=== PATIENT | male | born 1980 | race Caucasian/White ===

== ENCOUNTER 2018-05-14 17:14 | Emergency (ER) | payer MEDICAID, SELFPAY ==
[2018-05-14 17:21] VITALS: BP 122/75; PULSE 91; RESP 16; TEMP 37; O2SAT 96
--- NOTE | 2018-05-14 17:45 | ED.GENADUL_ITS ---
Discharge Plan Disposition Patient Disposition: HOME Condition: Stable Discharge Details Chief Complaint: RespSymp Clinical Impression: Infection, respiratory tract Primary Care Provider: None,None ED Provider: Daryl Islas Home Meds and New Rx's Prescriptions: New benzonatate 200 mg capsule 200 mg PO TID PRN (Reason: cough) Qty: 30 RF: 0 doxycycline hyclate 100 mg capsule 100 mg PO BID Qty: 14 RF: 0 Discharge Instructions Instructions: Cold Symptoms (ED) Additional Instructions: If you begin running high fevers, have significant shortness of breath difficulty breathing, or any further concerns feel free to return to the emergency department for reassessment. Otherwise take antibiotic as prescribed, stay well-hydrated, and get plenty of rest during illness. Follow-up with your primary care provider if not improving over the next week. Stand Alone Forms: Work Release Referrals: Primary Care Provider [Outside] Medical Decision Making Patient complains of nasal congestion, cough, fever and chills. Patient states that symptoms started 3 weeks ago and seem to be improving but over the past week has had night sweats, fever chills, worsening productive cough along with nasal congestion. Physical exam shows no sinus tenderness, no lymphadenopathy, mild posterior pharynx erythema. Lung sounds do show mild rhonchi in the right lower base that clear with coughing that I feel may be secondary mostly to his smoking. Patient is not tachycardic, not hypoxic, not hypotensive. given duration of symptoms and double illness sign patient placed on doxycycline. Patient states he was being able to fill prescription due to insurance so patient was given good Rx discount card. Return precautions were discussed. After discussion of diagnosis and plan of care patient has no further needs, questions, or concerns and states clear understanding to return to the emergency department for any worsening symptoms. HPI General Mode of arrival: ambulatory . Date/Time Provider Initiated Documentation: 05/14/18 17:25 . Limitations to Documentation: no limitations . Information obtained by: RN notes reviewed . History of Present Illness 37 year old M presents to the emergency department with the chief complaint of Cough fever nasal congestion, described as moderate, Quality is described as other (denies current pain), Patient started experiencing this week(s) (3) and it has been constant. Patient notes no other symptoms.. Patient did receive the following treatments prior to arrival, none Related Data Home Medications Medication Instructions Recorded Confirmed benzonatate 200 mg PO TID PRN #30 cap 05/14/18 doxycycline hyclate 100 mg PO BID #14 cap 05/14/18 Previous Rx's Medication Instructions Recorded benzonatate 200 mg PO TID PRN #30 cap 05/14/18 doxycycline hyclate 100 mg PO BID #14 cap 05/14/18 Allergies Allergy/AdvReac Type Severity Reaction Status Date / Time ibuprofen Allergy Severe Anaphylaxsi Unverified 05/14/18 17:23 s erythromycin base Allergy Unverified 05/14/18 17:23 General Stated Complaint: RespSymp [place]: 4 Review of Systems Constitutional Denies body ache(s), Reports chills, Reports fever(s), Reports headache(s) and Reports malaise Eyes Denies eye discharge ENT Reports as per HPI, Denies ear discharge, Denies otalgia, Reports headache(s), Reports nasal congestion, Reports nasal discharge, Denies neck pain, Reports sinus pain, Reports sinus pressure, Reports sore throat and Denies throat swelling Cardiovascular Denies chest pain and Denies dyspnea Respiratory Reports cough and Denies dyspnea Musculoskeletal Denies joint swelling and Denies neck pain Integumentary/Breasts Denies rash Neurologic Reports headache(s) Allergic/Immunologic Denies throat swelling [facility] Social History Smoking and Tabacco status: Current every day Exam Const General: cooperative, comfortable and no acute distress Orientation: alert and awake HENMT Head: normal to inspection, normocephalic and atraumatic Ears: hearing grossly normal bilaterally and TM's normal bilaterally General nose exam: external nose normal Face and sinus: normal facial exam, sinuses nontender and no erythema Mouth: oral mucosae normal, no drooling, no muffled voice and no trismus Throat: tonsils normal, uvula midline and posterior oropharynx abnormal erythema Neck Neck: normal visual inspection, full ROM, no lymphadenopathy, no meningeal signs, trachea midline and supple Resp Effort & Inspection: normal respiratory effort and able to speak in complete sentences Auscultation: rhonchi right lower and no wheezes Cardio Rate: regular rate Rhythm: regular rhythm Heart Sounds: S1 normal, S2 normal, normal S1 and S2, no click, no gallops, no murmurs and no rubs Skin General skin exam: no rashes or lesions noted and dry skin (warm) Neuro General: alert, awake, oriented x3, gait normal and moves all extremities Cognition: normal cognition Speech: speech normal Course Vital Signs Temperature 37 C 05/14/18 17:21 Pulse 91 H 05/14/18 17:21 Respiratory Rate 16 05/14/18 17:21 Blood Pressure 122/75 05/14/18 17:21 Pulse Oximetry 96 05/14/18 17:21 Temperature 37 C 05/14/18 17:21 Temperature Source Skin 05/14/18 17:21 Pulse 91 H 05/14/18 17:21 Respiratory Rate 16 05/14/18 17:21 Respiratory Effort Non-Labored 05/14/18 17:21 Blood Pressure 122/75 05/14/18 17:21 Blood Pressure Position Sitting 05/14/18 17:21 Pulse Oximetry 96 05/14/18 17:21 Oxygen Delivery Method Room Air 05/14/18 17:21 Oxygen Flow Rate 0 05/14/18 17:21 Pain Level 0 05/14/18 17:21
[2018-05-14] MEDS: Doxycycline Hyclate 100 MG CAP PO (17:55)
[2018-05-14 18:08] VITALS: BP 120/75; PULSE 90; RESP 16; TEMP 37; O2SAT 96
== END 2018-05-14 18:10 | disposition home or self-care (01) ==
PROVIDERS: Emergency Provider Nurse Practitioner Family
DX: J06.9 Acute upper respiratory infection, unspecified (principal); F17.210 Nicotine dependence, cigarettes, uncomplicated
CPT/HCPCS: 99283

== ENCOUNTER 2023-01-10 18:32 | Emergency (ER) | payer MEDICAID, SELFPAY ==
[2023-01-10 18:35] VITALS: BP 124/76; PULSE 114; RESP 18; TEMP 36.7; O2SAT 96
[2023-01-10 19:43] LABS: Abs Immature Grans 0.03 10^3/uL (0.0-0.06); Absolute Lymphocyte Count 2.99 10^3/uL (1.2-3.4); Absolute Neutrophil Count 9.56 10^3/uL (1.2-6.7); Basophils % 0.7; Eosinophils % 2.9; HCT 51.6 % (40.0-50.0); HGB 17.8 g/dL (13.5-17.5); Immature Grans % 0.2; Lymphocytes % 21.8; MCH 32.2 pg (27.0-33.0); MCHC 34.5 % (32.0-36.0); MCV 94 fL (80-95); MPV 9.9 fL (8.0-11.0); Monocytes % 4.7; Neutrophils % 69.7; Platelet Count 243 10^3/uL (130-400); RBC 5.52 10^6/uL (4.36-5.78); RDW 13.2 % (11.8-14.1); RDW-SD 45.8 fL; WBC 13.72 10^3/uL (4.4-10.8)
[2023-01-10 19:45] LABS: Absolute Monocyte Count 0.64 10^3/uL (0.1-0.8)
--- NOTE | 2023-01-10 19:46 | ED.GENADUL_ITS ---
Discharge Plan Disposition Patient Disposition: Home Condition: Stable Discharge Details Clinical Impression: Major depression Primary Care Provider: Unknown,Unknown ED Provider: Makeda Wilson Home Meds and New Rx's Prescriptions: No Action No Known Home Meds Discharge Instructions Instructions: Depression (DC) Referrals: Unknown,Unknown [Primary Care Provider] - (Follow-up with mental health as discussed and arranged) Discharge Data Discharge Date/Time-TO BE ENTERED AT DEPARTURE: 01/10/23 22:14 Medical Decision Making Routine psychiatric medical clearance. No acute medical condition identified to weigh symptoms. Stable for mental health consultation mental health evaluation with no suicidal or homicidal ideation. resources provided. safe for discharge to home. has been observed with positive attentive interactions with his young daughter as they awaited interview. Medical Records Medical records reviewed: Yes I reviewed the patient's medical records. HPI General Mode of arrival: ambulatory . Date/Time Provider Initiated Documentation: 01/10/23 18:45 . Limitations to Documentation: no limitations . Information obtained by: patient . HPI Narrative: 42-year-old male patient under a lot of stress with no stable living resident's, significant other and rehabilitation left as a sole caregiver for his GI daughter. [facility] has been involved and has advised symptoms of coming here for evaluation as he is feeling overwhelmed. He denies any suicidal or homicidal ideation. There is no concern that his daughter is danger Related Data Home Medications Medication Instructions Recorded Confirmed Unknown [No Known Home Meds] 04/27/21 04/27/21 Allergies Allergy/AdvReac Type Severity Reaction Status Date / Time ibuprofen Allergy Severe Anaphylaxsi Verified 04/27/21 10:09 s erythromycin base Allergy Verified 04/27/21 10:09 General Stated Complaint: PsychEval [place]: 2 Review of Systems All systems reviewed & are unremarkable except as noted in HPI and below PFSH All Active Problems (Updated 01/10/23 @ 20:22 by Makeda Wilson NP) Major depression (Chronic) Social History Smoking/Tobacco Use Status: Current every day Tobacco Type: cigarettes Smoking risk assessment performed?: Yes Drug use: Never Do you feel safe in your relationship?: Yes Exam Const General: cooperative, healthy appearing, comfortable and no acute distress Nutritional Appearance: average body habitus Orientation: alert, awake and oriented x3 HENMT Head: normal to inspection, normocephalic and atraumatic Mouth: oral mucosae normal Resp Effort & Inspection: normal respiratory effort Cardio Rate: regular rate Rhythm: regular rhythm GI Inspection: normal to inspection Palpation: soft Auscultation: normal bowel sounds Skin General skin exam: no rashes or lesions noted Neuro General: patient alert, patient awake and patient oriented x3 Extrem General: normal to inspection and full ROM Course Vital Signs Vital signs: Vital Signs Temperature 36.7 C 01/10/23 18:35 Pulse 114 H 01/10/23 18:35 Respiratory Rate 18 01/10/23 18:35 Blood Pressure 124/76 01/10/23 18:35 Pulse Oximetry 96 01/10/23 18:35 Temperature 36.7 C 01/10/23 18:35 Temperature Source Skin 01/10/23 18:35 Pulse 114 H 01/10/23 18:35 Respiratory Rate 18 01/10/23 18:35 Respiratory Effort Normal 01/10/23 18:39 Blood Pressure 124/76 01/10/23 18:35 Blood Pressure Position Sitting 01/10/23 18:35 Pulse Oximetry 96 01/10/23 18:35 Oxygen Delivery Method Room Air 01/10/23 18:35 Oxygen Flow Rate 0 01/10/23 18:35 Lab/Test Results Lab/Test Results: Laboratory Tests Range/Units 01/10/23 19:35 WBC (4.4-10.8) 10^3/uL 13.72 H RBC (4.36-5.78) 10^6/uL 5.52 Hgb (13.5-17.5) g/dL 17.8 H Hct (40.0-50.0) % 51.6 H MCV (80-95) fL 94 MCH (27.0-33.0) pg 32.2 MCHC (32.0-36.0) % 34.5 RDW (11.8-14.1) % 13.2 Plt Count (130-400) 10^3/uL 243 MPV (8.0-11.0) fL 9.9 Immature Gran % 0.2 Neutrophils % 69.7 Lymphocytes % 21.8 Monocytes % 4.7 Eosinophils % 2.9 Basophils % 0.7 Nucleated RBC % (0.0-0.3) % 0.0 Absolute Neutrophils (1.2-6.7) 10^3/uL 9.56 H Absolute Lymphocytes (1.2-3.4) 10^3/uL 2.99 Absolute Monocytes (0.1-0.8) 10^3/uL 0.64 Absolute Eosinophils (0.0-0.7) 10^3/uL 0.40 Absolute Basophils (0.0-0.2) 10^3/uL 0.10
[2023-01-10 19:56] LABS: Bilirubin Negative (Negative); Blood Negative (Negative); Clarity Clear (Clear); Glucose Negative (Negative); Ketones Negative (Negative); Leukocyte Esterase Negative (Negative); Nitrite Negative (Negative); Specific Gravity 1.025 (1.005-1.025); Urobilinogen 0.2 mg/dL (Up to 0.2)
[2023-01-10 20:11] LABS: ALT 20 U/L (16-63); AST 18 U/L (15-37); Albumin 4.2 g/dL (3.4-5.0); Alkaline Phosphatase 71 U/L (46-116); Anion Gap 5.5 mmol/L (3-11); BUN 8 mg/dL (7-18); Bilirubin, Total 0.4 mg/dL (0.2-1.0); CO2 28.5 mmol/L (21.0-32.0); Calcium 9.7 mg/dL (8.5-10.1); Chloride 104 mmol/L (98-107); Estimated GFR 96.97 (mL/min/1.73m2); Glucose 96 mg/dL (74-106); Sodium 138 mmol/L (136-145); TSH (W/Ref FT4) 1.09 uIU/mL (0.36-3.74); Total Protein 8.2 g/dL (6.4-8.2)
[2023-01-10 20:19] LABS: *AMPHETAMINES SCREEN URINE Negative (Negative); *BARBITURATES SCREEN URINE Negative (Negative); *BENZODIAZEPINES SCREEN URINE Negative (Negative); Cannabinoids THC Negative (Negative); Cocaine Screen,Urine Negative (Negative); METHADONE URINE SCREEN Negative (Negative); OPIATES URINE SCREEN Negative (Negative)
[2023-01-10 20:21] LABS: ETHANOL BLOOD < 3.0 mg/dL (<10)
[2023-01-10 20:21] LABS: Tricyclic Antidepressants Negative (Negative)
[2023-01-10 20:24] LABS: Acetaminophen < 2 ug/mL (10-30)
== END 2023-01-10 22:14 | disposition home or self-care (01) ==
PROVIDERS: Emergency Provider Nurse Practitioner Acute Care
DX: F32.9 Major depressive disorder, single episode, unspecified (principal)
CPT/HCPCS: 80053; 80307; 99281; 80320; 80329; 81003; 84443; 85025; 99282